=== PATIENT | female | born 1990 | race African-American/Black ===

== ENCOUNTER 2023-05-08 20:09 | Emergency (ER) | payer OTHER ==
[~2023-05-08] VITALS: Ht 172.7 cm; Wt 73.9 kg
[2023-05-08 20:46] VITALS: BP 144/106; PULSE 111; RESP 15; TEMP 98.3; O2SAT 100
[2023-05-08] MEDS ORDERED: NAPR-1704 PO (21:29)
[2023-05-08] MEDS ORDERED: ACET-8905 PO (21:29)
[2023-05-08] MEDS: KETOROLAC 30 MG/ML VIAL IM ONE (21:47)
== END 2023-05-08 21:37 | disposition home or self-care (01) ==
LOC: MED 20:09
DX: M26.621 Arthralgia of right temporomandibular joint (principal)
CPT/HCPCS: 96372; 99283; J1885

== ENCOUNTER 2023-05-21 09:50 | Emergency (ER) | payer OTHER ==
[~2023-05-21] VITALS: Ht 172.7 cm; Wt 77.1 kg
[~2023-05-21 09:50] MED LIST: ACET-8905 PO; NAPR-1704 PO
[2023-05-21 10:41] VITALS: BP 164/113; PULSE 93; RESP 16; TEMP 99; O2SAT 100
[2023-05-21] MEDS: KETOROLAC 30 MG/ML VIAL IM ONE (12:37)
[2023-05-21] MEDS: HYDROcodone/APAP 7.5/325 MG 1 TAB PO ONE (13:06)
[2023-05-21] MEDS: ONDANSETRON 4 MG ODT PO ONE (13:06)
[2023-05-21] MEDS ORDERED: ACET-8905 PO (14:05)
[2023-05-21 14:27] VITALS: BP 164/113; PULSE 93; RESP 16; TEMP 99; O2SAT 100
== END 2023-05-21 14:24 | disposition home or self-care (01) ==
LOC: MED 09:50
DX: M26.621 Arthralgia of right temporomandibular joint (principal); Z79.899 Other long term (current) drug therapy
CPT/HCPCS: 81025; 96372; 99283; J1885; Q0162